=== PATIENT | male | born 1975 | race Caucasian/White ===

== ENCOUNTER 2018-01-09 04:04 | Emergency (ER) | payer SELFPAY ==
[~2018-01-09] VITALS: Ht 182.9 cm; Wt 91.6 kg
--- NOTE | 2018-01-09 05:10 | NUR ---
Patient discharged to home in stable conditon. Written and verbal after care instructions given. Patient verbalizes understanding of instructions. Pt ambulated out of Er in steady gait. All belongings with pt. No acute distress noted. VSS.
[2018-01-09 05:11] VITALS: BP 132/89
== END 2018-01-09 05:12 | disposition home or self-care (01) ==
LOC: ER 04:11
DX: K29.70 Gastritis, unspecified, without bleeding (principal); F17.210 Nicotine dependence, cigarettes, uncomplicated
CPT/HCPCS: 93005; 99283; A4663